=== PATIENT | female | born 1965 | race Caucasian/White ===

== ENCOUNTER 2024-01-08 13:04 | Emergency (ER) | payer OTHER, SELFPAY ==
[2024-01-08 13:06] VITALS: BP 136/83; PULSE 89; RESP 18; TEMP 37.3; O2SAT 98
--- NOTE | 2024-01-08 13:30 | DI.RAD_ITS ---
Exam(s) XR ANKLE RT COMPLETE EXAM: XR ANKLE RT COMPLETE CLINICAL HISTORY: fall. TECHNIQUE: 2D digital imaging was performed. COMPARISON: No exams were available for comparison FINDINGS: No evidence of fracture or widening of the ankle mortise. Talar dome unremarkable. No prominent sof t tissue swelling. Base of the 5th metatarsal is intact. Incidentally noted is an enthesophyte on t he posterior calcaneus insertion site of the Achilles tendon. There is no inferior calcaneal spur. There is no evidence of osseous tarsal coalition. IMPRESSION: No acute osseous findings in the ankle. DATA REPOSITORY: RADIATION DOSE DELIVERED:
--- NOTE | 2024-01-08 13:30 | DI.RAD_ITS ---
Exam(s) XR WRIST RT COMPL NAVICULAR EXAM: XR WRIST RT COMPL NAVICULAR CLINICAL HISTORY: fall. TECHNIQUE: 2D digital imaging was performed. COMPARISON: No exams were available for comparison FINDINGS: 3 views There is a subtle nondisplaced fracture of the distal radius. Does not appear to be intra-articular. No significant ulnar variance. Scaphoid and scapholunate dis tance normal. No degenerative changes. IMPRESSION: Subtle nondisplaced fracture of the distal radius. DATA REPOSITORY: RADIATION DOSE DELIVERED:
[2024-01-08] MEDS: Ibuprofen 600 MG TAB PO (14:00)
--- NOTE | 2024-01-08 14:59 | DI.VRAD_ITS ---
PROCEDURE INFORMATION: Exam: XR Right Ankle Exam date and time: 01/08/2024 2:16 PM Age: 59 years old Clinical indication: Injury or trauma; Fall; Sprain or strain; Ankle; Right TECHNIQUE: Imaging protocol: Radiologic exam of the right ankle. Views: 3 or more views. COMPARISON: No relevant prior studies available. FINDINGS: Bones/joints: Ankle mortise joint is intact with no malleolar fracture. Soft tissues: Normal. No significant swelling. IMPRESSION: Normal ankle. Dictated and Authenticated by: Dimitri Gonzalez MD. Ordering:JOSELYN Mckeon MD
--- NOTE | 2024-01-08 14:59 | DI.VRAD_ITS ---
PROCEDURE INFORMATION: Exam: XR Right Wrist Exam date and time: 01/08/2024 2:12 PM Age: 59 years old Clinical indication: Injury or trauma; Fall; Sprain or strain; Wrist; Right TECHNIQUE: Imaging protocol: Radiologic exam of the right wrist. Views: 3 or more views. COMPARISON: No relevant prior studies available. FINDINGS: Bones/joints: There is a nondisplaced impacted fracture of the distal radius. There is slight dorsal angulation of the articular surface. No accompanying ulnar fracture. Carpal bones are intact. Soft tissues: Normal. No swelling. IMPRESSION: Distal radius fracture. Dictated and Authenticated by: Dimitri Gonzalez MD. Ordering:JOSELYN Mckeon MD
--- NOTE | 2024-01-08 15:10 | ED.GENADUL_ITS ---
Discharge Plan Disposition Patient Disposition: Home Discharge Details Clinical Impression: Distal radius fracture, right, Fall, Right ankle sprain Primary Care Provider: StephanieLocal ED Provider: Mike Jackson Home Meds and New Rx's Prescriptions: No Action escitalopram oxalate [Lexapro] 5 mg tablet 5 mg PO DAILY Discharge Instructions Instructions: Ankle Sprain (ED), Wrist Fracture in Adults (ED), Fall Prevention (ED) Additional Instructions: You may continue to take [id number] pain medication as needed for discomfort. Please keep wrist brace on at all times except for showering due to slight nondisplaced fracture noted on imaging. Please follow-up with local orthopedist when you return home for reassessment and further management of fracture. Please use the walking boot for the next 1 to 2 weeks and slowly advance activity as tolerated. Return to the emergency department immediately for any new or significant worsening of symptoms Referrals: Primary Care Provider [Outside] (As needed for referral to orthopedist) HPI General Mode of arrival: wheelchair . Date/Time Provider Initiated Documentation: 01/08/24 13:04 . Limitations to Documentation: no limitations . Information obtained by: patient and RN notes reviewed . History of Present Illness 59 year old F presents to the emergency department with the chief complaint of Right wrist, right ankle pain-mechanical fall, described as moderate, Patient started experiencing this day(s) (1) and it has been constant. Immobilization improves symptom(s), Movement worsens symptoms . Patient did receive the following treatments prior to arrival, NSAID Related Data Home Medications Medication Instructions Recorded Confirmed escitalopram oxalate 5 mg tablet 5 mg PO DAILY 01/08/24 01/08/24 (Lexapro) Allergies Allergy/AdvReac Type Severity Reaction Status Date / Time Sulfa (Sulfonamide Allergy Intermediate Other (See Verified 01/08/24 13:11 Antibiotics) Comment) hydrocodone [From Vicodin] AdvReac Intermediate Other (See Verified 01/08/24 13:12 Comment) demerol AdvReac Intermediate Other (See Uncoded 01/08/24 13:13 Comment) General Stated Complaint: Orthopedic LORNE: 4 Review of Systems Constitutional Constitutional: Denies fever(s), Denies frequent falls and Denies headache(s) ENT Ears, Nose, Mouth, and Throat: Denies headache(s) Cardiovascular Cardiovascular: Denies chest pain Gastrointestinal Gastrointestinal: Denies abdominal pain Musculoskeletal Musculoskeletal: Reports as per HPI, Reports arthralgias, Reports joint swelling, Reports limited range of motion, Denies numbness and Denies tingling Neurologic Neurologic: Denies frequent falls, Denies headache(s), Denies numbness and Denies tingling Exam Const General: cooperative, no acute distress and not ill appearing Orientation: alert, awake and oriented x3 HENMT Mouth: moist mucous membranes Resp Effort & Inspection: normal respiratory effort, able to speak in complete sentences and no respiratory distress Cardio Rate: regular rate Rhythm: regular rhythm Pulses: normal peripheral pulses Skin General skin exam: no rashes or lesions noted Neuro General: patient alert, patient awake, patient oriented x3, moves all extremities and no focal motor deficits Sensory Exam: no sensory deficits noted Extrem General: normal exam except as noted Right upper extremity: wrist Details: tenderness Location: of the distal radius, of the anatomic snuffbox and of the dorsal wrist and abnormal ROM; no ecchymosis and no crepitus Right lower extremity: normal capillary refill and ankle Details: tenderness Location: of the lateral malleolus, swelling Details: laterally, abnormal ROM (Full range of motion but does elicit pain) and ecchymosis lateral ; no patricio sions and no lacerations Course Vital Signs Vital signs: Vital Signs Temperature 37.3 C 01/08/24 13:06 Pulse 89 01/08/24 13:06 Respiratory Rate 18 01/08/24 13:06 Blood Pressure 136/83 01/08/24 13:06 Pulse Oximetry 98 01/08/24 13:06 Temperature 37.3 C 01/08/24 13:06 Temperature Source Skin 01/08/24 13:06 Pulse 89 01/08/24 13:06 Respiratory Rate 18 01/08/24 13:06 Respiratory Effort Normal, Non-Labored 01/08/24 13:24 Blood Pressure 136/83 01/08/24 13:06 Blood Pressure Position Sitting 01/08/24 13:06 Pulse Oximetry 98 01/08/24 13:06 Oxygen Delivery Method Room Air 01/08/24 13:06 Oxygen Flow Rate 0 01/08/24 13:06 Pain Level 5 01/08/24 13:24 Comment 5/10 at rest - pain increases with movement did not take BP medication this morning - forgot 01/08/24 13:06 Medical Decision Making Patient presenting to the emergency department for chief complaint of mechanical fall with right wrist injury due to falling on outstretched hand and right ankle injury. Patient denies any head injury, loss of consciousness, is not on blood thinners, denies all other associated potential trauma review of systems. Physical exam is positive for tenderness to radial aspect of wrist and anatomical snuffbox otherwise noncontributory, examination of right lower extremity does show point tenderness to distal fibula with intact range of motion but painful. Exam is otherwise unremarkable. Will perform radiological imaging for evaluation of sprain versus fracture. Pending results will give patient ibuprofen Review of radiological imaging and radiologist interpretation shows no acute findings with the ankle so patient placed in short walking boot. There is a subtle nondisplaced distal radius fracture noted on exam but otherwise no other worrisome findings. Patient placed in a thumb spica splint given that she also has anatomical snuffbox tenderness otherwise patient to follow-up with local orthopedist when she returns home for further evaluation and reassessment. After discussion of diagnosis and plan of care patient has no further needs, questions, or concerns and states clear understanding to return to the emergency department for any worsening symptoms. This documentation was generated using [employer] dictation system, please disregard any oddities of phrase or misspellings. Imaging Data Radiologic Study: Imaging: X-Ray Radiologist's impression: Exam(s) PROCEDURE INFORMATION: Exam: XR Right Wrist Exam date and time: 01/08/2024 2:12 PM Age: 59 years old Clinical indication: Injury or trauma; Fall; Sprain or strain; Wrist; Right TECHNIQUE: Imaging protocol: Radiologic exam of the right wrist. Views: 3 or more views. COMPARISON: No relevant prior studies available. FINDINGS: Bones/joints: There is a nondisplaced impacted fracture of the distal radius. There is slight dorsal angulation of the articular surface. No accompanying ulnar fracture. Carpal bones are intact. Soft tissues: Normal. No swelling. IMPRESSION: Distal radius fracture. Dictated and Authenticated by: Dimitri Gonzalez MD. Exam(s) PROCEDURE INFORMATION: Exam: XR Right Ankle Exam date and time: 01/08/2024 2:16 PM Age: 59 years old Clinical indication: Injury or trauma; Fall; Sprain or strain; Ankle; Right TECHNIQUE: Imaging protocol: Radiologic exam of the right ankle. Views: 3 or more views. COMPARISON: No relevant prior studies available. FINDINGS: Bones/joints: Ankle mortise joint is intact with no malleolar fracture. Soft tissues: Normal. No significant swelling. IMPRESSION: Normal ankle. Dictated and Authenticated by: Dimitri Gonzalez MD. Quality:SDOH Health Related Social Needs: No Data to Display PFSH All Active Problems Right ankle sprain (Acute) Fall (Acute) Distal radius fracture, right (Acute) Social History Smoking risk assessment performed?: No Alcohol Intake: current Substance use type: does not use PAWSS Have you Been Recently Intoxicated or Drunk Within the Last 30 days?: No Have you Ever Experienced Previous Episodes of Alcohol Withdrawal?: No Have you ever Experienced Withdrawal Seizures?: No Have you ever Experienced Delirium Tremens(DT)s?: No Have you ever undergone Alcohol Rehabilitation Treatment (i.e, inpt ot outpatient treatment programs)?: No Have you ever Experienced Blackouts?: No Have you ever Combined Alcohol with other Downers within the last 90 days?: No Have you ever Combined Alcohol with any other Substance of Abuse during the last 90 days?: No Positive Blood Alcohol level on Presentation? [PCS.BAL]: No Evidence of Increased Autonomic Activity (i.e. HR>120, tremor, sweating, agitation, nausea)?: No Result: 0
== END 2024-01-08 15:42 | disposition home or self-care (01) ==
LOC: ER 15:16
PROVIDERS: Emergency Provider Nurse Practitioner Family
DX: S52.501A Unspecified fracture of the lower end of right radius, initial encounter for closed fracture (principal); S93.401A Sprain of unspecified ligament of right ankle, initial encounter; W01.0XXA Fall on same level from slipping, tripping and stumbling without subsequent striking against object, initial encounter; Y92.018 Other place in single-family (private) house as the place of occurrence of the external cause
CPT/HCPCS: 99283; 73110; 73610